=== PATIENT | male | born 1970 | race Caucasian/White ===

== ENCOUNTER 2017-12-19 23:06 | Emergency (ER) | payer OTHER ==
[~2017-12-19] VITALS: Ht 177.8 cm; Wt 77.2 kg
[2017-12-19 23:39] LABS: HEMATOCRIT 45.8 % (38.0-50.0); HEMOGLOBIN 16.1 G/DL (12.5-16.6); MCH 31.2 PG (29.0-34.0); MCHC 35.2 G/DL (30.0-36.0); MCV 88.8 FL (86-99); PLATELET COUNT 216 K/uL (156-360); RBC DIS.WIDTH-CV 12.1 % (11.8-14.6); RBC DIS.WIDTH-SD 39.5 % (39-53); RED BLOOD COUNT 5.16 M/uL (4.00-5.50); WHITE BLOOD COUNT 6.5 K/uL (4.1-10.2)
[2017-12-19 23:49] LABS: CHLORIDE 106 mEq/L (99-109); POTASSIUM 3.7 mEq/L (3.7-5.4); SODIUM 139 mEq/L (136-147)
[2017-12-19 23:51] LABS: GLUCOSE 111 mg/dL (70-99)
[2017-12-19 23:54] LABS: INTER. NORMALIZED RATIO 0.9
[2017-12-19 23:55] LABS: CREATININE 0.9 mg/dL (0.6-1.3)
[2017-12-19 23:56] LABS: UREA NITROGEN (BUN) 15 mg/dL (9-23)
[2017-12-19 23:57] LABS: PTT 29.8 SEC (25-37)
[2017-12-20 00:01] LABS: GFR ESTIMATE (CALCULATED) > 59 mL/min/ (58.99-99999)
[2017-12-20 01:22] VITALS: BP 129/87
== END 2017-12-20 01:23 | disposition home or self-care (01) ==
LOC: EME 23:06
PROVIDERS: Emergency Medicine
DX: R42 Dizziness and giddiness (principal); E78.5 Hyperlipidemia, unspecified
CPT/HCPCS: 70450; 71046; 80048; 83735; 85027; 85610; 85730; 93005; 99281; 99285; J7030